=== PATIENT | male | born 1985 | race Two or more races ===

== ENCOUNTER → 2020-02-08 | Emergency (ER) | payer MEDICAID ==
[~2020-02-08] VITALS: Ht 175.3 cm; Wt 108.9 kg
[~2020-02-08] MED LIST: MORPHINE SULFATE 4 MG/ML SYR/VIAL IV ONE; ONDANSETRON HCL 4 MG/2 ML VIAL IV ONE; cefTRIAXone 1GM/50ML D5W 50 ML IV ONE
[2020-02-08 17:09] VITALS: BP 141/96
== END ==
LOC: EDUNIT# 15:02 → EDBD 15:04 → EDSEX 15:04 → ER 15:04
DX: S12.600A Unspecified displaced fracture of seventh cervical vertebra, initial encounter for closed fracture (principal); S01.01XA Laceration without foreign body of scalp, initial encounter; E11.9 Type 2 diabetes mellitus without complications; F17.210 Nicotine dependence, cigarettes, uncomplicated; V49.9XXA Car occupant (driver) (passenger) injured in unspecified traffic accident, initial encounter; Y93.89 Activity, other specified; Y92.89 Other specified places as the place of occurrence of the external cause; Y99.8 Other external cause status
CPT/HCPCS: 12004; 70450; 72125; 96365; 96375; 99285; J0696; J2270; J2405

== ENCOUNTER 2023-07-31 07:42 | Emergency (ER) | payer MEDICAID ==
[~2023-07-31] VITALS: Ht 175.3 cm; Wt 97.4 kg
[2023-07-31 08:12] VITALS: BP 124/76; PULSE 84; RESP 16; TEMP 97.3; O2SAT 98
[2023-07-31] MEDS ORDERED: IBUP-1456 PO (08:37)
[2023-07-31] MEDS ORDERED: CEPH500C PO (08:37)
== END 2023-07-31 08:54 | disposition home or self-care (01) ==
LOC: ER 07:42
DX: D17.1 Benign lipomatous neoplasm of skin and subcutaneous tissue of trunk (principal); L08.89 Other specified local infections of the skin and subcutaneous tissue; E11.9 Type 2 diabetes mellitus without complications; F17.210 Nicotine dependence, cigarettes, uncomplicated; F12.10 Cannabis abuse, uncomplicated

== ENCOUNTER 2023-08-15 12:56 | Emergency (ER) | payer MEDICAID ==
[~2023-08-15] VITALS: Ht 175.3 cm; Wt 98.1 kg
[~2023-08-15 12:56] MED LIST changes: +CEPH500C PO; +IBUP-1456 PO; -MORPHINE SULFATE 4 MG/ML SYR/VIAL IV ONE; -ONDANSETRON HCL 4 MG/2 ML VIAL IV ONE; -cefTRIAXone 1GM/50ML D5W 50 ML IV ONE
[2023-08-15] MEDS ORDERED: LIDOCAINE 1% HCL (LOCAL ANESTH.) INJ 20ML MDV IJ ONE (14:00)
[2023-08-15] MEDS ORDERED: IBUP-1456 PO (14:17)
[2023-08-15] MEDS ORDERED: CEPH500C PO (14:17)
[2023-08-15 14:28] VITALS: BP 157/104; PULSE 106; RESP 18; TEMP 99; O2SAT 98
== END 2023-08-15 14:29 | disposition left against medical advice (07) ==
LOC: EDBD 12:56 → ER 12:56
DX: S01.111A Laceration without foreign body of right eyelid and periocular area, initial encounter (principal); S80.212A Abrasion, left knee, initial encounter; S50.311A Abrasion of right elbow, initial encounter; E11.9 Type 2 diabetes mellitus without complications; F17.210 Nicotine dependence, cigarettes, uncomplicated; Z79.1 Long term (current) use of non-steroidal anti-inflammatories (NSAID); Z79.899 Other long term (current) drug therapy; Y04.2XXA Assault by strike against or bumped into by another person, initial encounter; Y93.89 Activity, other specified; Y92.89 Other specified places as the place of occurrence of the external cause; Y99.8 Other external cause status
CPT/HCPCS: 12013; 99283; J2001